=== PATIENT | female | born 1930 | race Caucasian/White ===

== ENCOUNTER 2017-03-05 19:25 | Inpatient (IN) | payer MEDICARE ==
--- NOTE | ~2017-03-05 | CR72 ---
[facility] A Service of [facility] & [facility] RADIOLOGY TEXT RESULTS PATIENT: ALOK PERRY LOCATION: [facility] 339-01 : 31 UNIT #: [id number] AGE: [address]: Tariq Boston MD SEX: F ORDER DR: [id number] [facility] [address] [place], [place] [address] [id number] E MR#: [id number] Acc #: [id number] NAME: ALOK PERRY : 1930 SEX: F STUDY DATE/TIME: 03/05/2017 20:18 UNIT: [facility] ROOM: STUDY DESCRIPTION: CR Chest Single View Portable Attending Physician: Modesto Sykes M.D. Ordering Physician: Ed Cal Calderon M.D. Primary Care Physician: Nell Fernández A.P.R.N. MEDICAL IMAGING REPORT This report is preliminary unless electronic signature is present EXAM Portable chest HISTORY Shortness of air and cough and weakness for 2 days. FINDINGS Moderate cardiac enlargement. Pulmonary vascularity is normal. Mild linear atelectasis or scarring in the left base. Left shoulder prosthesis. No airspace consolidation, or pleural effusion. IMPRESSION 1. Cardiac enlargement is similar to yesterday. 2. Stable probable minimal atelectasis or scarring in the left base. No definite airspace infiltrates. Dictated by... John Bird M.D. THIS IS AN ELECTRONICALLY VERIFIED REPORT John Bird M.D. at 03/06/2017 10:40 PM DFL/ronni TD: 03/06/2017 00:14 JOB #: [id number] MEDICAL IMAGING REPORT Page 1 of 1 COPY
--- NOTE | ~2017-03-05 | CR72 ---
[facility] A Service of [facility] & [facility] RADIOLOGY TEXT RESULTS PATIENT: ALOK PERRY LOCATION: [facility] 339- : 31 UNIT #: [id number] AGE: [address]: Terry Herndon MD SEX: F ORDER DR: [id number] [facility] [address] [place], [place] [address] [id number] I MR#: [id number] Acc #: [id number] NAME: ALOK PERRY : 1930 SEX: F STUDY DATE/TIME: 03/09/2017 UNIT: [address] ROOM: [facility] hospital STUDY DESCRIPTION: CR Chest Single View Portable Attending Physician: Tariq Boston M.D. Ordering Physician: Keyana Colón M.D. Primary Care Physician: Nell Fernández A.P.R.N. MEDICAL IMAGING REPORT This report is preliminary unless electronic signature is present EXAM Portable chest 03/09 at 47 INDICATIONS Respiratory shortness of air and cough. Symptoms worsened tonight. FINDINGS AP portable chest is compared with 03/05/2017. Cardiomegaly is stable. There is atherosclerotic disease in the aorta. There is some chronic scarring or atelectasis in the left base. No pneumothorax. Dictated by... Ryne Ling Jr., M.D. THIS IS AN ELECTRONICALLY VERIFIED REPORT Ryne Ling Jr., M.D. at 03/09/2017 11:16 AM TELLY/kanu TD: 03/09/2017 08:49 JOB #: [id number] MEDICAL IMAGING REPORT Page 1 of 1 COPY
--- NOTE | ~2017-03-05 | HP ---
Unit #: [id number] #: [id number] Patient: ALOK PERRY [id number] [address] [place], [place] [address] [id number] I MR#: [id number] NAME: ALOK PERRY. ROOM: 339 Age: 87 Sex: F Admission Date: 03/06/2017 : 1930 Attending Physician: Kandice Hanley M.D. Primary Care Physician: Nell Fernández A.P.R.N. HISTORY AND PHYSICAL CHIEF COMPLAINT Respiratory failure, COPD exacerbation, suspected community-acquired pneumonia. HISTORY This pleasant 87-year-old female with hypertension, COPD, chronic atrial fibrillation, and AODM, is admitted for respiratory failure. The patient was in her usual state of health until two weeks prior to admission when she developed increasing shortness of breath and mild pedal edema, and a deep cough productive of yellow sputum. Became increasingly short of breath over the past two days and saw her primary care physician two days ago. Chest x-ray did not reveal a definite infiltrate. The patient started Zithromax yesterday. However, she became more short of breath during the day with bronchospasm and rattling in her chest along with rigors. She was brought to this emergency department late last evening with an O2 saturation of 83% on room air. She normally requires oxygen only at bedtime. In the ER, she was given 125 mg of Solu-Medrol, and supplemental oxygen. Chest x-ray showed left base atelectasis versus scar. V/Q scan was low probability but did show underlying lung disease. On examination, the patient has mainly upper airway rattling but also some crackles, more at the right base. PAST MEDICAL HISTORY 1. Pulmonary embolus. 2. Chronic atrial fibrillation. The patient is followed by Dr. Jeffers. Her last echo 2011 showed normal LV and RV systolic function with mild to moderate MR and mild TR. She had a negative dobutamine Cardiolite in the past. She is anticoagulated. 3. AODM x20 years. 4. Prior history of pancreatitis secondary to hypertriglyceridemia. 5. Chronic kidney disease. 6. Peptic ulcer disease. 7. COPD requiring 2 L of oxygen at bedtime. 8. Admission last year for pneumonia and respiratory failure requiring BiPAP. 9. Gout. 10. Essential hypertension. 11. Appendectomy. 12. x3. 13. Total abdominal hysterectomy. 14. Inguinal hernia repair. 15. Benign breast lump removed from the breast. 16. Cataract extraction. Unit #: [id number] #: [id number] Patient: ALOK PERRY 17. Left shoulder surgery. ALLERGIES Meclizine. HOME MEDICATIONS 1. Toprol 25 mg b.i.d. 2. Coumadin 5 mg daily except for Thursday when the patient takes 2.5 mg. 3. Advair 250/50 b.i.d. 4. Combivent as needed. 5. Flonase nasal spray. 6. Duo-Nebs t.i.d. 7. Spiriva one puff daily. 8. Zaditor one drop both eyes b.i.d. 9. Allopurinol 300 mg daily. 10. Aspirin 81 mg daily. 11. Lasix 40 mg, two tablets daily. 12. Glipizide ER 5 mg daily. 13. Fish oil, two tablets twice a day. 14. Lipitor 10 mg daily. 15. Norvasc 2.5 mg daily. 16. Oxygen at bedtime. FAMILY HISTORY CAD, ovarian and bladder cancer. SOCIAL HISTORY The patient lives with her daughter. She smoked up to three to four packs per day for 36 years but stopped smoking 30 years ago. Does not drink alcohol. REVIEW OF SYSTEMS Notable for cough, shortness of breath, rigors, bronchospasm, COPD, hypertension, PE, AODM, pancreatitis, gout, hyperlipidemia, glaucoma, above mentioned surgeries. All other systems were reviewed and are otherwise negative. PHYSICAL EXAMINATION GENERAL APPEARANCE: Very pleasant 87-year-old female, does have audible rattling on exam. VITAL SIGNS: Temperature 97.9, pulse 88, respirations 20, blood pressure 166/79. O2 saturation is 83% on room air, and currently 93% on 50% Venti-mask. HEENT: Eyes PERRLA. Extraocular muscles are intact. Pharynx - dry mucosal membranes. NECK: Supple without adenopathy or thyromegaly. CHEST: Reveals crackles, more in the right than the left but also some upper airway crackly sounds. CARDIAC: Irregular S1, S2 without definite murmur. ABDOMEN: Bowel sounds are present. No hepatosplenomegaly, tenderness or masses. EXTREMITIES: Mild edema on the right. Pedal pulses are present. NEUROLOGIC EXAM: The patient is awake, alert, oriented. Cranial nerves are intact. She has equal strength throughout but is very weak on exam, needs help just to sit up. DIAGNOSTIC STUDIES LABORATORY: Admission labs - hematocrit is 39.2, white blood count 14.1, Unit #: [id number] #: [id number] Patient: ALOK PERRY normal platelet count. INR 1.6. SMA-12 - BUN 26, potassium 3.1, alk. phos. 154. BNP is 200 but this has improved from previous values. Lactic acid normal. ABG - pH 7.48, pCO2 35, pO2 53, O2 saturation 87.7% on 3 L of oxygen. Cardiac markers are negative. Flu serology negative. IMAGING: Chest x-ray - cardiomegaly, left base atelectasis versus infiltrate. V/Q scan shows low probability for PE. CARDIOVASCULAR: EKG shows rate controlled atrial fibrillation at 77 beats per minute. Left axis deviation. Somewhat poor R wave progression in V1 through V4. Q's noted in III and AVF. ASSESSMENT 1. Suspected community-acquired pneumonia with chronic obstructive pulmonary disease exacerbation and acute on chronic hypoxic respiratory failure: The patient was started on Z-Emerson yesterday. 2. Adult onset diabetes mellitus. 3. Chronic kidney disease. 4. Pulmonary embolus with subtherapeutic INR: V/Q scan is low probability. 5. Essential hypertension. 6. Gout. 7. Glaucoma. 8. Atrial fibrillation for which the patient is anticoagulated. 9. Hypokalemia. PLANS 1. Will add Rocephin to patient's Zithromax, treat with mucolytics, Duo-Nebs. Continue steroids and ask pulmonary to see in consultation given respiratory failure. 2. Obtain echo. 3. Daily PT and INR. 4. Replace potassium and check magnesium. Dictated by Kandice Hanley M.D. ALPHONSO/df TD: 03/06/2017 05:17 JOB #: [id number] Unit #: [id number] #: [id number] Patient: ALOK PERRY HISTORY AND PHYSICAL Page 1 of 1 X Kandice Hanley MD HISTORY AND PHYSICAL
--- NOTE | ~2017-03-05 | CO ---
Unit #: [id number] #: [id number] Patient: ALOK PERRY [id number] [address] [place], [place] [address] [id number] I MR#: [id number] NAME: ALOK PERRY ROOM: 339 Age: 87 Sex: F Admission Date: 03/06/2017 : 1930 Attending Physician: Tariq Boston M.D. Primary Care Physician: Nell Fernández A.P.R.N. Consultation Date: 03/06/2017 CONSULTATION REPORT Ms. Perry is an 87-year-old white female known to me from previous admission January 2016. She is followed by Dr. Kishan Rutherford for pulmonary. She presented with two week history of increasing shortness of breath, cough and yellow sputum. She had last been placed on prednisone for about ten days in December. She also received antibiotic at that time which I believe was doxycycline. She noted increasing shortness of breath over the last two days. She had seen her primary care provider two days ago and apparently chest x-ray reveled no infiltrate. She was restarted on Zithromax yesterday but continued to have difficulty breathing. She was brought to the emergency room. O2 saturations were 83% on room air. She generally wears only with sleep. In the emergency room, she was given 125 of Solu-Medrol. She was placed on 2 L and O2 saturations were 91%. Ventilation perfusion lung scan was done which was read as low probability and showing significant chronic lung disease. She has been admitted, we were asked to see. PAST MEDICAL HISTORY Significant for: 1. Pulmonary embolus. 2. Chronic atrial fib, maintained on anticoagulation. 3. Adult onset diabetes mellitus. 4. History of pancreatitis secondary to hypertriglyceridemia. 5. History of chronic kidney disease. 6. Peptic ulcer disease. 7. COPD. 8. Chronic respiratory failure, requiring oxygen nocturnally. 9. Hypertension. SURGERY 1. Appendectomy. 2. . 3. Abdominal hysterectomy. 4. Inguinal hernia repair. 5. Bilateral breast lump biopsies. 6. Cataract extraction. 7. Left shoulder surgery. ALLERGIES Meclizine. HOME MEDICINES 1. Toprol. 2. Coumadin. 3. Advair. Unit #: [id number] #: [id number] Patient: ALOK PERRY 4. Combivent. 5. Flonase. 6. DuoNeb. 7. Spiriva. 8. Zaditor eyedrops. 9. Allopurinol. 10. Aspirin. 11. Lasix. 12. Glipizide. 13. Fish oil. 14. Lipitor. 15. Norvasc. 16. Home O2. FAMILY HISTORY Coronary artery disease, ovarian and bladder cancer. SOCIAL HISTORY Lives with daughter. Smoked up to three to four packs a day for 36 years but stopped smoking 30 years ago. No alcohol or illicit drugs. REVIEW OF SYSTEMS Notable for cough, shortness of breath, wheezing, chills. Otherwise, ten point system negative. PHYSICAL EXAMINATION GENERAL: Pleasant, white female in no distress, not using accessory muscles to breathe. Able to speak in complete sentences. VITAL SIGNS: Blood pressure is 125/68, pulse 72, respiratory rate 18, afebrile. HEENT: Normocephalic, atraumatic. Pupils equal, round, reactive. Sclerae nonicteric. Nasal passages patent. Posterior pharynx clear. Mucous membranes moist. NECK: Supple. Trachea midline. No cervical or supraclavicular lymphadenopathy. LUNGS: Some mild expiratory wheeze and expiratory rhonchi. CARDIAC: Heart sounds distant. Irregular rate and rhythm. Could not appreciate murmur, rub or gallop. ABDOMEN: Nontender. Bowel sounds present. No hepatosplenomegaly. EXTREMITIES: Without clubbing, cyanosis or edema. NEURO: Awake, alert, oriented x3. Moves all extremities symmetrically. Cranial nerves grossly intact. Affect calm. SKIN: Warm and dry. DIAGNOSTIC STUDIES LABORATORY: Arterial blood gases - 7.48, pCO2 35, pO2 53 on 3 L. Chemistries reviewed. Glucose 203. BNP is 200. Cardiac enzymes are negative. Lactic acid level 1. PT/INR is 1.5. White blood cell count 14,100, hematocrit 39, platelet count normal. IMPRESSION 1. Acute hypoxemic respiratory failure. 2. Chronic obstructive pulmonary disease exacerbation. 3. Bronchitis, doubt pneumonia: I see no evidence of pneumonia on chest Unit #: [id number] #: [id number] Patient: ALOK PERRY x-ray. 4. Leukocytosis. 5. Chronic atrial fibrillation, on anticoagulation. PLAN Inhaled bronchodilators, IV steroids. Cover with antibiotics. Will check procalcitonin level to rule out possibility of pneumonia not really visible on current chest x-ray given leukocytosis and history of chills. Will follow with you. Addendum - will also place on Lovenox until fully anticoagulated on Coumadin. Dictated by... Ever Webb M.D. SAM/larisa TD: 03/06/2017 11:38 JOB #: [id number] CC: aSmmy Sanchez M.D. CONSULTATION REPORT Page 1 of 1 X Ever Webb MD X CONSULTATION REPORT
--- NOTE | ~2017-03-05 | CR63 ---
[facility] A Service of [facility] / [facility] RADIOLOGY TEXT RESULTS PATIENT: ALOK PERRY LOCATION: [facility] 339-01 : 31 UNIT #: [id number] AGE: [address]: Terry Herndon MD SEX: F ORDER DR: [id number] [facility] [address] [place], [place] [address] [id number] I MR#: [id number] Acc #: [id number] NAME: ALOK PERRY. : 1930 SEX: F STUDY DATE/TIME: 03/09/2017 07 UNIT: [address] ROOM: [facility] STUDY DESCRIPTION: CR Chest 2 View Attending Physician: Terry Herndon M.D. Ordering Physician: Ever Webb M.D. Primary Care Physician: Nell Fernández A.P.R.N. MEDICAL IMAGING REPORT This report is preliminary unless electronic signature is present EXAM Chest, 2 views, 03/09/2017, 0742 hours. CLINICAL HISTORY 87-year-old woman with COPD complaining of cough, shortness of air and weakness with respiratory failure since 03/06/2017. COMPARISON 03/09/2017 at 0407 hours. FINDINGS Upright PA and lateral views of the chest demonstrate stable mild cardiomegaly and tortuous atherosclerotic aorta. Lungs are hyperinflated with no acute pulmonary density. There is no pleural effusion or acute bone lesion. IMPRESSION Pulmonary hyperinflation with no acute cardiopulmonary findings. Stable cardiomegaly and tortuous aorta. Dictated by... Diya Krishna M.D. THIS IS AN ELECTRONICALLY VERIFIED REPORT Diya Krishna M.D. at 03/09/2017 2:28 PM LE/damaris TD: 03/09/2017 11:37 JOB #: [id number] MEDICAL IMAGING REPORT [facility] A Service of [facility] / [facility] RADIOLOGY TEXT RESULTS PATIENT: ALOK PERRY LOCATION: [facility] 339-01 : 31 UNIT #: [id number] AGE: [address]: Terry Herndon MD SEX: F ORDER DR: Page 1 of 1 COPY
--- NOTE | ~2017-03-05 | NM69 ---
[facility] A Service [facility] RADIOLOGY TEXT RESULTS PATIENT: ALOK PERRY LOCATION: [facility] : 31 UNIT #: [id number] AGE: [address]: Tariq Boston MD SEX: F ORDER DR: [id number] [address] [place], [place] [address] [id number] I MR#: [id number] Acc #: [id number] NAME: ALOK PERRY. : 1930 SEX: F STUDY DATE/TIME: 03/06/2017 0:39 UNIT: C3A PCU ROOM: [facility] STUDY DESCRIPTION: NM Pulm Vent and Perf Attending Physician: Kandice Hanley M.D. Ordering Physician: Modesto Sykes M.D. Primary Care Physician: Nell Fernández A.P.R.N. MEDICAL IMAGING REPORT This report is preliminary unless electronic signature is present EXAM Ventilation-perfusion scan INDICATION Respiratory distress today. PROCEDURE Ventilation images obtained after 34.5 mCi technetium labeled DTPA aerosol. Perfusion images obtained after 5.5 mCi technetium labeled MAA. COMPARISON 03/05/2017 FINDINGS Overall much better perfusion than ventilation. No VQ mismatch. IMPRESSION 1. Low probability scan for pulmonary embolus. 2. Underlying lung disease. Dictated by... Jesse Holder M.D. THIS IS AN ELECTRONICALLY VERIFIED REPORT Jesse Holder M.D. at 03/09/2017 7:29 AM MUNDO/conrad TD: 03/06/2017 04:17 JOB #: [id number] MEDICAL IMAGING REPORT [facility] A Service [facility] RADIOLOGY TEXT RESULTS PATIENT: ALOK PERRY LOCATION: [facility] 339 : 31 UNIT #: [id number] AGE: [address]: Tariq Boston MD SEX: F ORDER DR: Page 1 of 1 COPY
--- NOTE | ~2017-03-05 | EKG ---
PATIENT: ALOK PERRY UNIT #: [id number] Ventricular Rate: 77 BPM Atrial Rate: 86 BPM QRS Duration: 108 ms Q-T Interval: 384 ms QTC Calculation(Bezet): 434 ms Calculated R Wisner: -43 degrees Calculated T Wisner: 53 degrees Diagnosis Line: Atrial fibrillation Diagnosis Line: Left axis deviation Diagnosis Line: Pulmonary disease pattern Diagnosis Line: Incomplete right bundle branch block Diagnosis Line: Possible Inferior infarct (cited on or before Diagnosis Line: 16-FEB-2016) Diagnosis Line: Abnormal ECG Diagnosis Line: When compared with ECG of 16-FEB-2016 07:18, Diagnosis Line: Incomplete right bundle branch block has replaced Diagnosis Line: Right bundle branch block Diagnosis Line: Confirmed by CHEPE SPENCER MD ([id number]) on 03/06/2017 Diagnosis Line: 7:17:17 PM INTERPRETING MD: TJ ANDERSEN
--- NOTE | ~2017-03-05 | DS ---
Unit #: [id number] #: [id number] Patient: ALOK PERRY [id number] [address] [address] [id number] I MR#: [id number] NAME: ALOK PERRY. ROOM: 339 Age: 87 Sex: F Admission Date: 03/06/2017 : 1930 Discharge Date: 03/11/2017 Attending Physician: Terry Herndon M.D. Primary Care Physician: Nell Fernández A.P.R.N. 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 ADMITTING DIAGNOSES 1. Chronic obstructive pulmonary disease exacerbation. 2. Possible community-acquired pneumonia. 3. Respiratory failure. 4. Atrial fibrillation on anticoagulation with Coumadin. 5. Hypertension. 6. Diabetes mellitus. HISTORY OF PRESENTING ILLNESS The patient is an 87-year-old, pleasant, lady with a past medical history of COPD on nocturnal oxygen, history of chronic AFib on anticoagulation, diabetes, hypertension who was admitted on the with a chief complaint of cough and shortness of breath. HOSPITAL COURSE She was started on steroids, antimicrobials. Slowly, her breathing has stabilized. Her steroids were transitioned to oral. Dr. Osborne was helping us pulmonary kramer. Her INR bumped up to 5.2 on the February, possibly (1) antimicrobials. After holding her Coumadin, the INR became subtherapeutic. She was resumed on Coumadin. She is doing clinically stable. She will be discharged home and instructed to follow with her primary care and with Pulmonary as an outpatient. On the day of the discharge, her physical examination: GENERAL APPEARANCE: The patient is alert, oriented x3, lying in the bed, in no acute distress. VITAL SIGNS: Temperature 97.4. Pulse 78. Respiratory rate 18. Blood pressure 151/82. HEENT: Normocephalic, atraumatic. No icterus. PERRLA. Extraoculars intact. HEART: S1, S2. Irregular. CHEST: Bilateral equal air entry. No wheeze. ABDOMEN: Soft, nontender. EXTREMITIES: No edema. Normal pulses. DISCHARGE MEDICATIONS 1. Prednisone 20 mg p.o. twice a day. 2. Coumadin 5 mg p.o. all the week except on Thursday when she will get 2.5 mg. She is instructed to follow with Cardiology for getting her INR checked. 3. Clotrimazole topical ointment to be applied twice a day. Unit #: [id number] #: [id number] Patient: ALOK PERRY 4. Tessalon Perles p.r.n. 5. Norvasc 2.5 mg daily. 6. Metoprolol 25 mg p.o. twice a day. 7. Bisacodyl 5 mg p.r.n. for constipation. 8. Zaditor one drop twice daily. 9. Humibid LA 600 mg twice a day. 10. Lipitor 10 mg daily. 11. Allopurinol 150 mg daily. 12. Florastor 250 mg p.o. twice a day. 13. Aspirin 81 mg daily. 14. [place]-3 fish oil capsule twice a day. 15. Advair Diskus 250/50 mcg one puff twice a day. 16. Combivent 4 g inhalation p.r.n. shortness of breath. 17. Combivent nebulizations p.r.n. 18. Flonase 0.05% nasal spray two sprays daily. 19. Protonix 40 mg daily. 20. Glucotrol 5 mg daily. Total time spent in her care-35 minutes. Dictated by... Elisa Blas TD: 03/13/2017 06:58 JOB #: [id number] DISCHARGE SUMMARY Page 1 of 1 X X DISCHARGE SUMMARY
[~2017-03-05 19:25] MED LIST: ADVAIR 250-501 EAC1 IH; ADVAIR 250-501 EAC1 INH; ADVAIR 250-501 EACH IH; ADVAIR 250-501 EACH INH; ADVAIR 2501 DISK W/D; ADVAIR INH; ALBUTEROL0.83 MG/ML INH; ALLOPURINOL300 MG PO; ALOPURINOL PO; AMLODIPINE BES2.5 MG PO; AMLODIPINE BESYL5 MG PO; ASPIRIN; ASPIRIN EC81 M1 PO; ASPIRIN PO; ASPIRIN81 M2 PO; ASPIRIN81 MG PO; ATORVASTATIN CA10 MG PO; ATROVENT NEB; BENICAR PO; CIPRO PO; CLOTRIMAZOLE/BE15 G1 TP; CLOTRIMAZOLE/BE15 GM TOP; COMBIVENT MININEB INH; COMBIVENT RESPIM4 GM IH; COMBIVENT RESPIM4 GM INH; COMBIVENT14.7 GM INH; COUMADIN5 MG PO; DIAZEPAM PO; DUONEB 2.5-0.5 M3 ML NEB; EXPECTORANT DM PO; FISH OIL 1,0001 CAP; FISH OIL 1,0001 CAP PO; FLONASE SENSIM9.9 ML; FLONASE16 GM; FLUTICASON; FLUTICASONE P15.8 ML; FUROSEMIDE40 MG PO; GLIPIZIDE ER2.5 MG PO; GLIPIZIDE2.5 MG/BOT PO; GLUCOTROL PO; GLUCOTROL XL PO; HYDROCODON-ACE1 EAC7 PO; INDOMETHACIN75 MG PO; IPRAT-ALBUT 0.5-3 ML IH; IPRAT-ALBUT 0.5-3 ML INH; IPRATROPIUM; LASIX; LASIX PO; LEVAQUIN PO; LIPITOR PO; LORTAB 10-5001 EACH PO; LOTENSIN20 MG PO; LOTREL 5/20 MG1 CAP; LOTREL 5/20 MG1 CAP PO; LOVAZA PO; LOVAZA1 G PO; MEDROL4 MG/DOSE- PO; METFORMIN; METFORMIN HCL1000 M1 PO; METFORMIN PO; METOPROLOL SUCC25 MG PO; METOPROLOL TAR25 MG DOB; NASONEX17 GM; OMACOR PO; OMEGA-3 ACID ETH1 GM PO; PHENERGAN PO; PREDNISONE PO; PROTONIX PO; SIMVASTATIN20 MG PO; SIMVASTATIN40 MG PO; SPIRIVA18 MCG INH; VICODIN 5/500 T1 TAB PO; VIT B-12 PO; ZADITOR5 M1 OP; ZADITOR5 M1 OU; ZOCOR20 MG PO; ZOFRAN SL; ZYLOPRIM PO; [UNRECOGNIZED DRUG - OTHER]; [UNRECOGNIZED DRUG - OTHER] NS
[2017-03-05 19:42] LABS: ARTERIAL BLOOD GAS HCO3 26.2 mmol/L; ARTERIAL BLOOD GAS MET HB 0.7 %sat (0.0-2.0); ARTERIAL BLOOD GAS pH 7.482 (7.350-7.450)
[2017-03-05 19:43] LABS: ARTERIAL BLD GAS O2 SATURATION 87.7 % (90.0-100.0); ARTERIAL BLOOD GAS ALLEN TEST NORMAL; ARTERIAL BLOOD GAS ART SITE LEFT RADIAL; ARTERIAL BLOOD GAS DELIVERY NASAL CANNULA; ARTERIAL DRAW? YES
[2017-03-05 19:52] LABS: BASOPHIL# 0.1 X10e3 (0-0.3); BASOPHIL% 0.4 % (0-2.5); EOSINOPHIL# 0.2 X10e3 (0-0.7); EOSINOPHIL% 1.5 % (0.0-7.0); HEMATOCRIT 39.2 % (35.0-45.0); HEMOGLOBIN 12.5 gm/dL (12.0-16.0); LYMPHOCYTE# 1.3 X10e3 (1.0-3.5); LYMPHOCYTE% 9.2 % (17.0-45.0); MEAN CELL VOLUME 92.3 FL (83-96); MEAN CORPUSCULAR HEMOGLOBIN 29.3 PG (28-34); MEAN CORPUSCULAR HGB CONC 31.8 g/dL (30-36); MEAN PLATELET VOLUME 7.7 FL (6.5-11.5); MONOCYTE# 0.7 X10e3 (0-1.0); MONOCYTE% 5.1 % (3.0-12.0); NEUTROPHIL# 11.8 X10e3 (1.5-7.1); NEUTROPHIL% 83.8 % (40-75); PLATELET COUNT 264 X10e3 (140-420); RED BLOOD COUNT 4.25 X10e (3.90-5.30); RED CELL DISTRIBUTION WIDTH 17.8 % (11.0-15.5); WHITE BLOOD COUNT 14.1 X10e3 (4.0-10.5)
[2017-03-05 19:54] LABS: DIFF IND NO
[2017-03-05 19:57] LABS: POC - CKMB 3.7 ng/mL (0.0-7.9); POC - TROPONIN <0.05 ng/mL (<=0.05)
[2017-03-05 20:05] LABS: INR 1.6; PARTIAL THROMBOPLASTIN TIME 32.9 SECONDS (23.5-31.3); PROTHROMBIN TIME (PATIENT) 16.8 SECONDS (9.6-11.5)
[2017-03-05 20:18] LABS: BILIRUBIN, DIRECT 0.2 mg/dL (0.0-0.2); BILIRUBIN,INDIRECT 0.6 mg/dL (0.0-0.9); BILIRUBIN,TOTAL 0.8 mg/dL (0.2-2.0); BUN/CREATININE RATIO 21.66; CALCIUM SERUM 8.9 mg/dL (8.4-10.2); CREATININE SERUM 1.2 mg/dL (0.6-1.4); GLOM FILT RATE Estimated 40.9 mL/min (>60); POTASSIUM 3.1 mmol/L (3.5-5.1)
[2017-03-05 21:29] LABS: INFLUENZA A NEG (NEG); INFLUENZA B NEG (NEG)
[2017-03-05 22:10] LABS: POC - CKMB 3.6 ng/mL (0.0-7.9); POC - TROPONIN <0.05 ng/mL (<=0.05)
[2017-03-06 07:03] LABS: HEMATOCRIT 35.8 % (35.0-45.0); HEMOGLOBIN 11.2 gm/dL (12.0-16.0); MEAN CELL VOLUME 92.1 FL (83-96); MEAN CORPUSCULAR HEMOGLOBIN 28.8 PG (28-34); MEAN CORPUSCULAR HGB CONC 31.3 g/dL (30-36); MEAN PLATELET VOLUME 7.8 FL (6.5-11.5); RED BLOOD COUNT 3.89 X10e (3.90-5.30); RED CELL DISTRIBUTION WIDTH 17.8 % (11.0-15.5)
[2017-03-06 07:09] LABS: INR 1.5; PROTHROMBIN TIME (PATIENT) 15.8 SECONDS (9.6-11.5)
[2017-03-06 07:34] LABS: BUN/CREATININE RATIO 21.53; CALCIUM SERUM 8.5 mg/dL (8.4-10.2); CREATININE SERUM 1.3 mg/dL (0.6-1.4); GLOM FILT RATE Estimated 37.1 mL/min (>60); POTASSIUM 3.6 mmol/L (3.5-5.1)
[2017-03-06 07:55] LABS: %MB 2.4 % (0.0-4.0); MB 1.6 ng/ml
[2017-03-07 07:17] LABS: HEMOGLOBIN 10.6 gm/dL (12.0-16.0); MEAN CELL VOLUME 92.5 FL (83-96); MEAN CORPUSCULAR HEMOGLOBIN 28.9 PG (28-34); MEAN CORPUSCULAR HGB CONC 31.3 g/dL (30-36); MEAN PLATELET VOLUME 8.1 FL (6.5-11.5); RED BLOOD COUNT 3.67 X10e (3.90-5.30); RED CELL DISTRIBUTION WIDTH 17.4 % (11.0-15.5); WHITE BLOOD COUNT 12.5 X10e3 (4.0-10.5)
[2017-03-07 07:35] LABS: INR 2.1; PROTHROMBIN TIME (PATIENT) 22.4 SECONDS (9.6-11.5)
[2017-03-07 07:48] LABS: CALCIUM SERUM 8.6 mg/dL (8.4-10.2); CREATININE SERUM 1.6 mg/dL (0.6-1.4); GLOM FILT RATE Estimated 28.9 mL/min (>60); MAGNESIUM 2.2 mg/dL (1.6-3.0); POTASSIUM 3.7 mmol/L (3.5-5.1)
[2017-03-08 07:22] LABS: INR 4.4
[2017-03-08 07:25] LABS: PROTHROMBIN TIME (PATIENT) 48.8 SECONDS (9.6-11.5)
[2017-03-08 07:46] LABS: BUN/CREATININE RATIO 37.69; CALCIUM SERUM 8.7 mg/dL (8.4-10.2); CREATININE SERUM 1.3 mg/dL (0.6-1.4); GLOM FILT RATE Estimated 37.1 mL/min (>60); POTASSIUM 3.9 mmol/L (3.5-5.1)
[2017-03-09 04:07] LABS: ARTERIAL BLD GAS O2 SATURATION 96.9 % (90.0-100.0); ARTERIAL BLOOD GAS CARBOXY HB 0.1 %sat (0.0-9.0); ARTERIAL BLOOD GAS HCO3 24.1 mmol/L; ARTERIAL BLOOD GAS PCO2 37.9 mmHg (35.0-45.0); ARTERIAL BLOOD GAS pH 7.413 (7.350-7.450)
[2017-03-09 04:09] LABS: ARTERIAL DRAW? YES
[2017-03-09 04:10] LABS: ARTERIAL BLOOD GAS ALLEN TEST NORMAL; ARTERIAL BLOOD GAS ART SITE RIGHT RADIAL; ARTERIAL BLOOD GAS DELIVERY NASAL CANNULA
[2017-03-09 06:18] LABS: PROTHROMBIN TIME (PATIENT) 64.8 SECONDS (9.6-11.5)
[2017-03-09 06:21] LABS: INR 5.8
[2017-03-09 11:07] LABS: HEMATOCRIT 37.4 % (35.0-45.0); HEMOGLOBIN 11.6 gm/dL (12.0-16.0); MEAN CELL VOLUME 93.6 FL (83-96); MEAN CORPUSCULAR HEMOGLOBIN 28.9 PG (28-34); MEAN CORPUSCULAR HGB CONC 30.9 g/dL (30-36); MEAN PLATELET VOLUME 7.9 FL (6.5-11.5); RED CELL DISTRIBUTION WIDTH 17.7 % (11.0-15.5); WHITE BLOOD COUNT 11.2 X10e3 (4.0-10.5)
[2017-03-10 07:49] LABS: HEMOGLOBIN 11.5 gm/dL (12.0-16.0); MEAN CELL VOLUME 92.1 FL (83-96); MEAN CORPUSCULAR HEMOGLOBIN 29.3 PG (28-34); MEAN CORPUSCULAR HGB CONC 31.8 g/dL (30-36); MEAN PLATELET VOLUME 8.1 FL (6.5-11.5); RED BLOOD COUNT 3.91 X10e (3.90-5.30); RED CELL DISTRIBUTION WIDTH 17.5 % (11.0-15.5); WHITE BLOOD COUNT 10.1 X10e3 (4.0-10.5)
[2017-03-10 07:58] LABS: INR 1.5
[2017-03-10 08:03] LABS: PROTHROMBIN TIME (PATIENT) 15.7 SECONDS (9.6-11.5)
[2017-03-10 08:15] LABS: BUN/CREATININE RATIO 31.53; CALCIUM SERUM 8.8 mg/dL (8.4-10.2); CREATININE SERUM 1.3 mg/dL (0.6-1.4); GLOM FILT RATE Estimated 37.1 mL/min (>60); POTASSIUM 4.1 mmol/L (3.5-5.1)
[2017-03-11 05:43] LABS: HEMATOCRIT 32.8 % (35.0-45.0); HEMOGLOBIN 10.7 gm/dL (12.0-16.0); MEAN CELL VOLUME 90.5 FL (83-96); MEAN CORPUSCULAR HEMOGLOBIN 29.6 PG (28-34); MEAN CORPUSCULAR HGB CONC 32.7 g/dL (30-36); RED BLOOD COUNT 3.62 X10e (3.90-5.30); RED CELL DISTRIBUTION WIDTH 17.5 % (11.0-15.5); WHITE BLOOD COUNT 10.2 X10e3 (4.0-10.5)
[2017-03-11 05:56] LABS: INR 1.2; PROTHROMBIN TIME (PATIENT) 12.4 SECONDS (9.6-11.5)
[2017-03-11 07:05] LABS: BUN/CREATININE RATIO 36.36; CREATININE SERUM 1.1 mg/dL (0.6-1.4); GLOM FILT RATE Estimated 45.4 mL/min (>60); POTASSIUM 4.6 mmol/L (3.5-5.1)
[2017-03-11] MEDS ORDERED: HUMIBID-LA600 MG PO (17:04)
[2017-03-11] MEDS ORDERED: FLORASTOR PO (17:05)
[2017-03-11] MEDS ORDERED: OVEGA-3 SOFTGE1 EAC1 PO (17:08)
[2017-03-11] MEDS ORDERED: PREDNISONE PO (17:09)
[2017-03-11] MEDS ORDERED: PROTONIX PO (17:11)
[2017-03-11] MEDS ORDERED: BENZONATATE PO (17:12)
== END 2017-03-11 19:08 | disposition home health service (06) | DRG 189 ==
LOC: CED 19:25 → CEDOF 03-06 01:10 → C3A PCU 03-06 02:50
PROVIDERS: Emergency Medicine; Internal Medicine
DX: J96.21 Acute and chronic respiratory failure with hypoxia (principal); J18.9 Pneumonia, unspecified organism; N17.9 Acute kidney failure, unspecified; J44.1 Chronic obstructive pulmonary disease with (acute) exacerbation; I48.91 Unspecified atrial fibrillation; E11.9 Type 2 diabetes mellitus without complications; I12.9 Hypertensive chronic kidney disease with stage 1 through stage 4 chronic kidney disease, or unspecified chronic kidney disease; N18.9 Chronic kidney disease, unspecified; E87.6 Hypokalemia; M10.9 Gout, unspecified; H40.9 Unspecified glaucoma; Z79.01 Long term (current) use of anticoagulants; Z79.84 Long term (current) use of oral hypoglycemic drugs; Z79.82 Long term (current) use of aspirin; Z79.51 Long term (current) use of inhaled steroids; Z79.52 Long term (current) use of systemic steroids; Z79.899 Other long term (current) drug therapy; Z87.891 Personal history of nicotine dependence
CPT/HCPCS: 36415; 36600; 71010; 71020; 78582; 80048; 80076; 82308; 82550; 82553; 82803; 82947; 83605; 83735; 83880; 84484; 85025; 85027; 85610; 85730; 87040; 87804; 93005; 93306; 94640; 94667; 94668; 94760; 96374; 97162; 97166; 99285; A9540; A9567; G0238; G8978-GP; G8979-GP; G8980-GP; G8987-GO; G8988-GO; G8989-GO; J0456; J0696; J1650; J1815; J1940; J2920; J2930; J3430